=== PATIENT | female | born 1975 | race Caucasian/White ===

== ENCOUNTER 2018-05-18 21:07 | Emergency (ER) | payer OTHER, MEDICAID ==
[2018-05-19] MEDS: LORAZEPAM 1 MG TAB PO (01:26)
[2018-05-19] MEDS: KETOROLAC 60 MG INJ IM (01:32)
== END 2018-05-19 02:51 | disposition home or self-care (01) ==
LOC: FTE 21:07
DX: M54.2 Cervicalgia (principal)
CPT/HCPCS: 70360; 81025; 96372; 99284-25